=== PATIENT | male | born 1995 | race African-American/Black ===

== ENCOUNTER 2019-05-19 14:08 | Emergency (ER) | payer SELFPAY ==
[~2019-05-19] VITALS: Ht 190.5 cm; Wt 136.1 kg
[2019-05-19 14:39] VITALS: BP 165/81
--- NOTE | 2019-05-19 14:52 | PHYS DOC ---
Adult General Chief Complaint Chief Complaint: NAUSEA/VOMITING/DIARRHA HPI HPI Patient is a 23 year old male who presents stating that he vomited at work 3 days ago and went home. The patient states he doesn't feel nauseous and vomiting vomiting that day. The patient states that he was also feeling hot and cold. The patient states he try to go back to work today and needed a work note so came to the ER. The patient has been drinking fluids at home able to keep them down. No other complaints. Review of Systems Review of Systems Constitutional: Reports fever or chills Eyes: Denies change in visual acuity, redness, or eye pain [] HENT: Denies nasal congestion or sore throat [] Respiratory: Denies cough or shortness of breath [] Cardiovascular: No additional information not addressed in HPI [] GI: reports nausea and vomiting 3 days ago. Denies abdominal pain, bloody stools or diarrhea [] : Denies dysuria or hematuria [] Musculoskeletal: Denies back pain or joint pain [] Integument: Denies rash or skin lesions [] Neurologic: Denies headache, focal weakness or sensory changes [] Endocrine: Denies polyuria or polydipsia [] Complete systems were reviewed and found to be within normal limits, except as documented in this note. Physical Exam Physical Exam Constitutional: Well developed, well nourished, no acute distress, non-toxic appearance. [] HENT: Normocephalic, atraumatic, bilateral external ears normal, oropharynx moist, no oral exudates, nose normal. [] Eyes: PERRLA, EOMI, conjunctiva normal, no discharge. [] Neck: Normal range of motion, no tenderness, supple, no stridor. [] Skin: Warm, dry, no erythema, no rash. [] Back: No tenderness, no CVA tenderness. [] Extremities: No tenderness, no cyanosis, no clubbing, ROM intact, no edema. [] Neurologic: Alert and oriented X 3, normal motor function, normal sensory function, no focal deficits noted. [] Psychologic: Affect normal, judgement normal, mood normal. [] EKG EKG [] Radiology/Procedures Radiology/Procedures [] Course & Med Decision Making Course & Med Decision Making Pertinent Labs and Imaging studies reviewed. (See chart for details) A medical screening exam was performed on this patient and the patient does not appear to be having a medical emergency. His symptoms are not of sufficient severity and within reasonable medical probability it is unlikely the absence of immediate medical attention would result in placing the health of the individual in serious jeopardy, serious impairment to bodily functions, or serious dysfunction of any bodily organ or part. Dragon Disclaimer Dragon Disclaimer This electronic medical record was generated, in whole or in part, using a voice recognition dictation system. Departure Departure Impression: Primary Impression: Encounter for medical screening examination Disposition: HOME, SELF-CARE Condition: STABLE Referrals: NO PCP (PCP) Patient Instructions: Medical Screening Exam Additional Instructions: Thank you for visiting [facility]. We appreciate you trusting us with your care. If any additional problems come up don't hesitate to return to visit us. Please follow up with your primary care provider so they can plan additional care if needed and know about the problem that you had. If symptoms worsen come back to the Emergency Department. Any concerning symptoms that start such as chest pain, shortness of air, weakness or numbness on one side of the body, running high fevers or any other concerning symptoms return to the ER. BRITTANIE CLINTON APRN May 19, 2019 14:52
== END 2019-05-19 15:20 | disposition home or self-care (01) ==
LOC: ER 14:08
DX: R11.2 Nausea with vomiting, unspecified (principal)
CPT/HCPCS: 99281

== ENCOUNTER 2019-12-24 16:44 | Emergency (ER) | payer OTHER ==
[~2019-12-24] VITALS: Ht 190.5 cm; Wt 132.0 kg
[2019-12-24 16:45] VITALS: BP 175/98
--- NOTE | 2019-12-24 17:10 | PHYS DOC ---
Past Medical History Past Medical History: No Pertinent History Past Surgical History: No Surgical History Smoking Status: Current Every Day Smoker Alcohol Use: None Drug Use: None General Adult EDM: Chief Complaint: ANKLE PROBLEM HPI: HPI: Patient is a 24 year old male who presents with left ankle pain. Patient reports that he stepped into a pothole and twisted it inward at the left ankle. He was seen at [facility] on December 14, 2019 and was told that he had a fracture and was placed in a walking boot. Patient reports that he was told to wear the walking boot for 2 days and that he could remove it to return to work. Patient reports that ever since he stopped wearing the boot he has had increasing pain. Patient states he has been up and ambulating on it as well. Patient currently rates his pain 7 out of 10. There is no radiation of pain. He reports that most of his pain is to the lateral and medial aspect of his left ankle. He is ambulatory with steady gait. Patient denies any numbness or tingling to his extremities. Review of Systems: Review of Systems: Constitutional: Denies fever or chills. [] Eyes: Denies change in visual acuity. [] HENT: Denies nasal congestion or sore throat. [] Respiratory: Denies cough or shortness of breath. [] Cardiovascular: Denies chest pain or edema. [] GI: Denies abdominal pain, nausea, vomiting, bloody stools or diarrhea. [] : Denies dysuria. [] Musculoskeletal: Denies back pain. Left ankle joint pain. [] Integument: Denies rash. [] Neurologic: Denies headache, focal weakness or sensory changes. [] Endocrine: Denies polyuria or polydipsia. [] Lymphatic: Denies swollen glands. [] Psychiatric: Denies depression or anxiety. [] Heart Score: Risk Factors: Risk Factors: DM, Current or recent (<one month) smoker, HTN, HLP, family history of CAD, obesity. Risk Scores: Score 0 - 3: 2.5% MACE over next 6 weeks - Discharge Home Score 4 - 6: 20.3% MACE over next 6 weeks - Admit for Clinical Observation Score 7 - 10: 72.7% MACE over next 6 weeks - Early Invasive Strategies Allergies: Allergies: Allergies Coded Allergies Type Severity Reaction Last Updated Verified Fish Containing Products Allergy Unknown 05/19/19 Yes Physical Exam: PE: Constitutional: Well developed, well nourished, no acute distress, non-toxic appearance. [] HENT: Normocephalic, atraumatic, bilateral external ears normal, oropharynx moist, no oral exudates, nose normal. [] Eyes: PERRLA, EOMI, conjunctiva normal, no discharge. [] Neck: Normal range of motion, no tenderness, supple, no stridor. [] Cardiovascular:Heart rate regular rhythm, no murmur [] Lungs & Thorax: Bilateral breath sounds clear to auscultation [] Abdomen: Bowel sounds normal, soft, no tenderness, no masses, no pulsatile masses. [] Skin: Warm, dry, no erythema, no rash. [] Back: No tenderness, no CVA tenderness. [] Extremities: No tenderness, no cyanosis, no clubbing, ROM intact, no edema. [] Neurologic: Alert and oriented X 3, normal motor function, normal sensory function, no focal deficits noted. [] Psychologic: Affect normal, judgement normal, mood normal. [] Normal Physical Exam Current Patient Data: Vital Signs: Vital Signs Date Time Temp Pulse Resp B/P (MAP) Pulse Ox O2 Delivery O2 Flow Rate FiO2 12/24/19 16:45 98.5 80 17 175/98 (123) 97 Room Air 98.5 EKG: EKG: [] Radiology/Procedures: Radiology/Procedures: [] Impression: [facility] [address] [place], [place] [id number] IMAGING REPORT Signed PATIENT: ESTELA COLVIN ACCOUNT: [id number] : 1995 LOCATION: ER AGE: 24 SEX: M EXAM STATUS: PRE ER ORD. PHYSICIAN: ESTELLA BLANKENSHIP APRN REASON: pain, hx fracture 2 weeks ago PROCEDURE: ANKLE LEFT 3V Exam: Left ankle 3 views INDICATION: Pain, history of fracture TECHNIQUE: Frontal, lateral and oblique views of the left ankle Comparisons: None FINDINGS: Bone mineralization is normal. No acute or healed fractures. Mild soft tissue swelling noted surrounding the ankle. Joint spaces are well-maintained. IMPRESSION: Soft tissue swelling at the ankle without underlying osseous abnormality identified. Electronically signed by: Sonya Mena MD (12/24/2019 5:49 PM) [id number] DICTATED and SIGNED BY: SONYA MENA MD DATE: 12/24/19 1749 Course & Med Decision Making: Course & Med Decision Making Pertinent Labs and Imaging studies reviewed. (See chart for details) Full range of motion of the ankle. No laxity of the ankle. No swelling of the extremity. No deformity is noted. No tenderness to the ankle or the extremity. Skin pink warm and dry. Pedal pulse strong. X-ray finds no acute findings. Patient can continue to wear the boot and he can follow-up with orthopedics. [] Dragon Disclaimer: Dragon Disclaimer: This electronic medical record was generated, in whole or in part, using a voice recognition dictation system. Departure Departure Impression: Primary Impression: Ankle pain, left Qualified Codes: M25.572 - Pain in left ankle and joints of left foot Disposition: HOME, SELF-CARE Condition: STABLE Referrals: NO PCP (PCP) RAMAN CARDOSO MD Patient Instructions: Ankle Sprain Additional Instructions: Follow-up with orthopedics as soon as possible. He can continue wearing the boot even at work. The more that you are up on at the lumbar spine take to heal. Rest the extremity, elevate and use ice for pain. Also take ibuprofen for pain. Justicifation of Admission Dx: Justifications for Admission: Justification of Admission Dx: N/A ESTELLA BLANKENSHIP APRN Dec 24, 2019 17:10
--- NOTE | 2019-12-24 17:51 | RAD ---
Exam: Left ankle 3 views INDICATION: Pain, history of fracture TECHNIQUE: Frontal, lateral and oblique views of the left ankle Comparisons: None FINDINGS: Bone mineralization is normal. No acute or healed fractures. Mild soft tissue swelling noted surrounding the ankle. Joint spaces are well-maintained. IMPRESSION: Soft tissue swelling at the ankle without underlying osseous abnormality identified. Electronically signed by: Sonya Lara MD (12/24/2019 5:49 PM) [id number]
== END 2019-12-24 18:00 | disposition home or self-care (01) ==
LOC: ER 16:44
DX: M25.572 Pain in left ankle and joints of left foot (principal); G89.11 Acute pain due to trauma; F17.200 Nicotine dependence, unspecified, uncomplicated; Z91.013 Allergy to seafood; W17.2XXA Fall into hole, initial encounter; Y93.89 Activity, other specified; Y92.89 Other specified places as the place of occurrence of the external cause; Y99.8 Other external cause status
CPT/HCPCS: 73610; 99283

== ENCOUNTER 2020-05-21 10:39 | Emergency (ER) | payer OTHER ==
[~2020-05-21] VITALS: Ht 193 cm; Wt 136.3 kg
[2020-05-21 11:23] VITALS: BP 171/82
[2020-05-21] MEDS ORDERED: HYDROcodone/APAP 5/325MG 1 TAB TABLET PO ONE (11:45)
[2020-05-21] MEDS ORDERED: DIPH,PERTUSS(ACELL),TET VAC/PF 0.5 ML SYRINGE. VAX IM ONE (11:45)
--- NOTE | 2020-05-21 12:19 | RAD ---
EXAM: FOOT LEFT 3V 05/21/2020 11:33 AM CLINICAL INDICATION:Heavy metal status dropped on left foot today COMPARISON:Left ankle radiograph 12/16/2019 TECHNIQUE:3 views of the left foot FINDINGS:There is a small nondisplaced oblique intra-articular fracture at the lateral edge of the great toe distal phalanx base and nondisplaced, comminuted fracture of the distal phalanx tuft. Alignment is normal. Joint spaces are maintained. There is soft tissue swelling at the great toe. IMPRESSION:Small nondisplaced intra-articular fracture at the base of the great toe distal phalanx and nondisplaced fracture of the great toe distal phalanx tuft. Electronically signed by: Fabiana Salas MD (05/21/2020 12:16 PM) [id number]
[2020-05-21] MEDS ORDERED: HYDR-3164 PO (13:09)
[2020-05-21] MEDS ORDERED: CEPH500C PO (13:09)
--- NOTE | 2020-05-21 13:09 | PHYS DOC ---
Past Medical History Past Medical History: No Pertinent History Past Surgical History: No Surgical History Smoking Status: Current Every Day Smoker Alcohol Use: None Drug Use: None General Adult EDM: Chief Complaint: TOE PROBLEM HPI: HPI: Patient is a 24 year old male who was brought here by EMS from work due to left great toe injury. Patient was working at [employer] today. 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 The customer could not stand the weight, dropped the safe, patient could not hold on and dropped it on his left foot. Patient had a tennis shoe on. Patient has severe pain on the left great toe, no other injury. No back pain, no neck pain, no leg pain. Review of Systems: Review of Systems: Constitutional: Denies fever or chills. [] Eyes: Denies change in visual acuity. [] HENT: Denies nasal congestion or sore throat. [] Respiratory: Denies cough or shortness of breath. [] Cardiovascular: Denies chest pain or edema. [] GI: Denies abdominal pain, nausea, vomiting, bloody stools or diarrhea. [] : Denies dysuria. [] Musculoskeletal: left great toe pain. Integument: Denies rash. [] Neurologic: Denies headache, focal weakness or sensory changes. [] Endocrine: Denies polyuria or polydipsia. [] Lymphatic: Denies swollen glands. [] Psychiatric: Denies depression or anxiety. [] Heart Score: Risk Factors: Risk Factors: DM, Current or recent (<one month) smoker, HTN, HLP, family history of CAD, obesity. Risk Scores: Score 0 - 3: 2.5% MACE over next 6 weeks - Discharge Home Score 4 - 6: 20.3% MACE over next 6 weeks - Admit for Clinical Observation Score 7 - 10: 72.7% MACE over next 6 weeks - Early Invasive Strategies Current Medications: Current Medications Medications (Trade) Dose Ordered Sig/Radha Start Time Stop Time Status Last Admin Dose Admin Acetaminophen/ Hydrocodone Bitart (Lortab 5/325) 2 tab 1X ONCE 05/21/20 11:45 05/21/20 11:46 DC 05/21/20 11:54 2 TAB Diphtheria/ Tetanus/Acell Pertussis (ADACEL TDap SYRINGE) 0.5 ml ONCE ONCE 05/21/20 11:45 05/21/20 11:46 DC 05/21/20 11:57 0.5 ML Allergies: Allergies: Allergies Coded Allergies Type Severity Reaction Last Updated Verified Fish Containing Products Allergy Unknown 05/19/19 Yes Physical Exam: PE: Constitutional: Well developed, well nourished, no acute distress, non-toxic appearance. [] HENT: Normocephalic, atraumatic, bilateral external ears normal, oropharynx moist, no oral exudates, nose normal. [] Eyes: PERRLA, EOMI, conjunctiva normal, no discharge. [] Neck: Normal range of motion, no tenderness, supple, no stridor. [] Cardiovascular:Heart rate regular rhythm, no murmur [] Lungs & Thorax: Bilateral breath sounds clear to auscultation [] Abdomen: Bowel sounds normal, soft, no tenderness, no masses, no pulsatile masses. [] Skin: Warm, dry, no erythema, no rash. [] Back: No tenderness, no CVA tenderness. [] Extremities: left great toe nail is almost completely avulsed off the toe, no bony exposured, no active bleeding. Left great toe is tender to palpation. Neurologic: Alert and oriented X 3, normal motor function, normal sensory function, no focal deficits noted. [] Psychologic: Affect normal, judgement normal, mood normal. [] Current Patient Data: Vital Signs: Vital Signs Date Time Temp Pulse Resp B/P (MAP) Pulse Ox O2 Delivery O2 Flow Rate FiO2 05/21/20 11:23 97.6 62 18 171/82 (111) 96 Room Air 97.6 EKG: EKG: [] Radiology/Procedures: Radiology/Procedures: [][facility] [address] [place] [address] IMAGING REPORT Signed PATIENT: ESTELA COLVIN ACCOUNT: [id number] : 1995 LOCATION: ER AGE: 24 SEX: M EXAM STATUS: REG ER ORD. PHYSICIAN: AUGUSTO MAYERS DO REASON: heavy metal Safe dropped on left foot today,PAIN RADIATING UP GREAT TOE PROCEDURE: FOOT LEFT 3V EXAM: FOOT LEFT 3V 05/21/2020 11:33 AM CLINICAL INDICATION:Heavy metal status dropped on left foot today COMPARISON:Left ankle radiograph 12/16/2019 TECHNIQUE:3 views of the left foot FINDINGS:There is a small nondisplaced oblique intra-articular fracture at the lateral edge of the great toe distal phalanx base and nondisplaced, comminuted fracture of the distal phalanx tuft. Alignment is normal. Joint spaces are maintained. There is soft tissue swelling at the great toe. IMPRESSION:Small nondisplaced intra-articular fracture at the base of the great toe distal phalanx and nondisplaced fracture of the great toe distal phalanx tuft. Electronically signed by: Fabiana Salas MD (05/21/2020 12:16 PM) [id number] DICTATED and SIGNED BY: FABIANA SALAS MD DATE: 05/21/20 [id number] 0 Course & Med Decision Making: Course & Med Decision Making Pertinent Labs and Imaging studies reviewed. (See chart for details) Patient is a 24-year-old male who sustained the left great toe avulsion and fracture due to an accident at work. Patient was given Tetanus booster. A posterior short leg splint extended beyond the toes was applied on left leg by ED nurse tech, orthoglass material. Patient was discharged home with crutches, pain medication, antibiotic. Patient was advised nonweight bearing, follow up with orthopedic surgeon next week. Dragon Disclaimer: Dragon Disclaimer: This electronic medical record was generated, in whole or in part, using a voice recognition dictation system. Departure Departure Impression: Primary Impression: Fracture of great toe, left, closed Additional Impression: Nail avulsion, toe Disposition: 01 DC HOME SELF CARE/HOMELESS Condition: STABLE Referrals: NO PCP (PCP) PAT STOVER MD PLEASE CALL THIS ORTHOPEDIC FOR FOLLOW UP NEXT WEEK. Patient Instructions: Toe Avulsion, Toe Fracture Additional Instructions: You were given narcotic today in the ER for pain control. It will show up in your employer's drug screening test. Scripts Cephalexin (CEPHALEXIN) 500 Mg Capsule 1 CAP PO QID for 7 Days, #28 CAP Prov: AUGUSTO MAYERS DO 05/21/20 Hydrocodone/Apap 5-325 (NORCO 5-325 TABLET) 1 Each Tablet 1 TAB PO PRN Q6HRS PRN for PAIN, #20 TAB 0 Refills Prov: AUGUSTO MAYERS DO 05/21/20 AUGUSTO MAYERS DO May 21, 2020 13:09
== END 2020-05-21 13:18 | disposition home or self-care (01) ==
LOC: ER 10:39
DX: S92.422A Displaced fracture of distal phalanx of left great toe, initial encounter for closed fracture (principal); S91.202A Unspecified open wound of left great toe with damage to nail, initial encounter; R60.0 Localized edema; F17.200 Nicotine dependence, unspecified, uncomplicated; Z91.013 Allergy to seafood; W20.8XXA Other cause of strike by thrown, projected or falling object, initial encounter; Y93.89 Activity, other specified; Y92.89 Other specified places as the place of occurrence of the external cause; Y99.8 Other external cause status
CPT/HCPCS: 29515; 73630; 90471; 90715; 99283